=== PATIENT | female | born 1970 | race Caucasian/White ===

== ENCOUNTER 2016-10-10 11:49 | Outpatient (CLI) | payer OTHER ==
[2015-05-08 11:35] VITALS: BP 104/60
[2016-10-10 12:28] LABS: eGFR (African) > 60; eGFR (Non-African) > 60
== END 2016-10-10 11:50 ==
LOC: LAB 11:49
PROVIDERS: ATTEND Family Medicine
DX: E78.2 Mixed hyperlipidemia (principal); E03.9 Hypothyroidism, unspecified
CPT/HCPCS: 36415; 80053; 80061; 84443

== ENCOUNTER 2016-11-08 16:07 | Outpatient (CLI) | payer OTHER ==
[2015-05-08 11:35] VITALS: BP 104/60
== END 2016-11-08 16:10 ==
LOC: LABRHC 16:07
PROVIDERS: ATTEND Physician Assistant
DX: N39.0 Urinary tract infection, site not specified (principal)
CPT/HCPCS: 87086

== ENCOUNTER 2017-11-21 15:41 | Emergency (ER) | payer OTHER ==
[2017-11-21] MEDS ORDERED: KETOROLAC TROMETHAMINE 30 MG/1ML VIAL IVP ONE (15:52)
[2017-11-21] MEDS ORDERED: (BACK ORDERED; DO NOT ORDER) DIAZEPAM 5 MG/ML DISP.SYRIN IVP ONE (15:52)
[2017-11-21] MEDS ORDERED: ORPHENADRINE CITRATE 60 MG/2ML IV ONE (16:14)
--- NOTE | 2017-11-21 17:08 | ED Physician Documentation ---
Low Back Pain - HISTORIAN Historian: patient - HPI Stated Complaint: Back Spasms Chief Complaint: Low Back Pain/ Injury History: back pain Onset: hours Duration: continues in ED Severity: severe (spasms) Further Comments: yes (47 year old female patient presents with complaints of low back pain and spasms which started around 1300. Denies heavy lifting or fall prior to pain. 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 Very tearful, today is anniversary of son's .) - ROS CONST: no problems CVS/RESP: none EYES/ENT: none MS/SKIN/LYMPH: back pain. denies: calf pain, neck pain, joint pain, leg swelling, leg pain, ankle swelling Neuro/Psych: none GI/: denies: abdominal pain - PAST HX Past History: back pain. denies: back injury Other History: hypertension, other (HLD, hypothyroidism) Allergies/Adverse Reactions: Allergies Allergy/AdvReac Type Severity Reaction Status Date / Time codeine [Codeine] Allergy Mild Hives Verified 11/21/17 16:07 Home Medications: Ambulatory Orders Medication Instructions Recorded Baclofen [Liorasal] 10 mg PO TID PRN #30 tablet 11/21/17 Ketorolac Tromethamine [Toradol] 10 mg PO TID #15 tablet 11/21/17 - SOCIAL HX Smoking History: non-smoker - FAMILY HX Family History: denies: none - VITAL SIGNS Vital Signs: Vital Signs Temp Pulse Resp BP Pulse Ox 89 15 122/87 98 11/21/17 17:16 11/21/17 17:16 11/21/17 17:16 11/21/17 15:42 - REVIEWED ASSESSMENTS Nursing Assessment Reviewed: Yes Vitals Reviewed: Yes Progress - Progress Progress: No Valium available. Norflex and toradol given in ER. Patient states she feels much better at discharge. ED Results Lab/Radiology - Orders Orders: ED Orders Category Date Time Status Place IV Lock 1T Care 11/21/17 16:05 Active Diazepam [Valium] Med 11/21/17 15:52 Discontinued 5 mg IVP NOW ONE Ketorolac Tromethamine [Toradol] Med 11/21/17 15:52 Discontinued 30 mg IVP NOW ONE Orphenadrine Citrate [Norflex] Med 11/21/17 16:14 Discontinued 60 mg IV NOW ONE Low Back Pain/Injury - Physical Exam General Appearance: severe distress EENT: eye inspection normal, DMITRIY Resp/CVS: chest non-tender, breath sounds nml, heart sounds nml, no resp. distress, lungs clear, reg. rate & rhythm Abdomen: non-tender, no organomegaly, no pulsatile mass Back: muscle spasm (bilateral lumbar spine) Straight Leg Raising: Positive Left, Positive Right Neuro/Psych: oriented x3, motor nml, sensation nml, bilat. 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 Limit your dose to less than 4 G per day. Alternate with Ibuprofen 600-800mg three times a day with food as needed. Do not take for more than 5 days in a row. Do not take ibuprofen, aleve, naproxen or any other NSAID while you are on toradol. You may want to try massage, over the counter lidocaine patches, biofreeze, megan narayan or aspercream . If you are unable to bear weight and continuing to have significant pain on day 3-4; see your PCP for re-evaluation and additional xrays. Condition: Stable Disposition: 01 HOME, SELF-CARE Decision to Admit: NO Decision Time: 17:08
[2017-11-21 17:18] VITALS: BP 122/87
== END 2017-11-21 17:16 | disposition home or self-care (01) ==
LOC: ED 15:41
DX: M62.830 Muscle spasm of back (principal)
CPT/HCPCS: J1885; J2360; S1016

== ENCOUNTER 2018-03-11 08:34 | Outpatient (CLI) | payer OTHER ==
[2018-03-11 10:08] LABS: eGFR (Non-African) > 60
== END 2018-03-11 08:36 ==
LOC: LAB 08:34
PROVIDERS: ATTEND Nurse Practitioner Family
DX: E78.00 Pure hypercholesterolemia, unspecified (principal); R73.9 Hyperglycemia, unspecified; E03.9 Hypothyroidism, unspecified
CPT/HCPCS: 36415; 80053; 80061; 83036; 84439; 84443; 84481

== ENCOUNTER 2018-04-08 08:45 | Outpatient (CLI) | payer OTHER | END 2018-04-08 08:46 | LOC: LAB 08:45 | PROVIDERS: ATTEND Nurse Practitioner Family | DX: E03.9 Hypothyroidism, unspecified (principal) | CPT/HCPCS: 36415; 84439; 84443; 84481 ==

== ENCOUNTER 2018-05-17 10:32 | Outpatient (CLI) | payer OTHER | END 2018-05-17 10:33 | LOC: LAB 10:32 | PROVIDERS: ATTEND Nurse Practitioner Family | DX: E03.9 Hypothyroidism, unspecified (principal) | CPT/HCPCS: 36415; 84436; 84479 ==

== ENCOUNTER 2018-05-28 20:12 | Emergency (ER) | payer OTHER ==
[2018-05-28 20:34] VITALS: BP 151/86
[2018-05-28] MEDS: 0.9 % SODIUM CHLORIDE 1,000 ML IV ONE ×2 (21:06→21:58)
[2018-05-28] MEDS: ONDANSETRON HCL/PF 4 MG/ 2ML VIAL IVP ONE (21:06)
[2018-05-28 21:07] LABS: MEAN CORPUSCULAR HEMOGLOBIN 28.6 pg (28.0-34.0)
[2018-05-28] MEDS: PROMETHAZINE HCL 25 MG/ML VIAL ONE (21:07)
[2018-05-28] MEDS: PROMETHAZINE HCL 25 MG in 0.9 % SODIUM CHLORIDE 50 ML IV ONE (21:07)
[2018-05-28 21:08] LABS: EOSINOPHILS % 3.2 % (0.0-6.8); MONOCYTES % 7.9 % (0.0-11.0); NEUTROPHILS # 7.1 # k/uL (1.4-7.7)
[2018-05-28 21:16] LABS: eGFR (Non-African) > 60
[2018-05-28] MEDS: KETOROLAC TROMETHAMINE 30 MG/1ML VIAL IVP ONE (21:59)
--- NOTE | 2018-05-28 22:30 | ED Physician Documentation ---
Nausea/Vomiting/Diarrhea - HISTORIAN Historian: patient - HPI Stated Complaint: Diarrhea Chief Complaint: Nausea,Vomiting,Diarrhea Further Comments: yes (47 year old female patient presents with diarrhea and cramping since 0400 yesterday. Vomiting x 1. Denies any fever. Has not taken her daily medications x 2 days.) - Associated Symptoms Vomiting: mild Diarrhea: other (frequent) Abdominal Pain: cramping - ROS CONST: denies: fever, sweating, chills CVS/RESP: denies: chest pain, shortness of breath, cough, dry cough, non- productive cough, productive cough, bloody cough, other GI/: none EYES/ENT: none MS/SKIN/LYMPH: denies: joint pain, leg swelling, rash, swollen glands, ankle swelling, other NEURO/PSYCH: headache. denies: fainting, anxiety, depression - PAST HX Past History: diabetes Type 2 Other History: hypertension Allergies/Adverse Reactions: Allergies Allergy/AdvReac Type Severity Reaction Status Date / Time codeine [Codeine] Allergy Mild Hives Verified 05/28/18 20:35 Home Medications: Ambulatory Orders Medication Instructions Recorded Ondansetron HCl Rapdis [Zofran Odt] 4 mg PO Q6 PRN #30 tab 05/28/18 - SOCIAL HX Smoking History: non-smoker - FAMILY HX Family History: denies: none - VITAL SIGNS Vital Signs: Vital Signs Temp Pulse Resp BP Pulse Ox 95.7 F L 117 H 15 151/86 97 05/28/18 22:41 05/28/18 22:41 05/28/18 22:41 05/28/18 22:41 05/28/18 22:41 - REVIEWED ASSESSMENTS Nursing Assessment Reviewed: Yes Vitals Reviewed: Yes Progress - Progress Progress: Patient with 2 episodes of diarrhea while in ER. Feels better after promethazine. Second liter of fluids given . ED Results Lab/Radiology - Lab Results Lab Results: Lab Results 05/29/18 05/28/18 05/28/18 20:50 20:54 20:54 WBC 10.20 K/ul K/ul (4.00-12.00) RBC 5.20 M/ul M/ul (3.90-5.20) Hgb 14.9 g/dL g/dL (12.0-16.0) Hct 45.6 % % (34.5-46.5) MCV 88.0 fl fl (80.0-100.0) MCH 28.6 pg pg (28.0-34.0) MCHC 32.7 g/dL g/dL (30.0-36.0) RDW 14.0 % % (11.3-14.3) Plt Count 345 K/mm3 K/mm3 (130-400) Neut % (Auto) 69.6 % % (39.0-79.0) Lymph % (Auto) 18.3 % % (16.0-50.0) Emmet % (Auto) 7.9 % % (0.0-11.0) Eos % (Auto) 3.2 % % (0.0-6.8) Baso % (Auto) 1.0 (0.0-1.5) Neut # (Auto) 7.1 # k/uL # k/uL (1.4-7.7) Lymph # (Auto) 1.9 # k/uL # k/uL (0.6-4.0) Emmet # (Auto) 0.8 # k/uL # k/uL (0.0-0.9) Eos # (Auto) 0.3 # k/uL # k/uL (0.0-0.6) Baso # (Auto) 0.1 # k/uL # k/uL (0.0-0.5) Sodium 138 mmol/L mmol/L (136-145) Potassium 4.3 mmol/L mmol/L (3.5-5.1) Chloride 104 mmol/L mmol/L (98-107) Carbon Dioxide 22 mmol/L mmol/L (22-30) BUN 8 mg/dL mg/dL (7-17) Creatinine 0.59 mg/dL mg/dL (0.52-1.04) Estimated Creat Clear 253 Est GFR ( Amer) > 60 (60 - ) Est GFR (Non-Af Amer) > 60 (60 - ) Glucose 96 mg/dL mg/dL (74-106) Calcium 9.3 mg/dL mg/dL (8.4-10.2) Total Bilirubin 0.3 mg/dL mg/dL (0.2-1.3) AST 40 U/L U/L (15-46) ALT 30 U/L U/L (13-69) Alkaline Phosphatase 91 U/L U/L (38-126) Total Protein 8.6 g/dL H g/dL (6.3-8.2) Albumin 4.3 g/dL g/dL (3.5-5.0) Influenza A (Rapid) Negative (NEGATIVE) Influenza B (Rapid) Negative (NEGATIVE) - Orders Orders: ED Orders Category Date Time Status Place IV Lock 1T Care 05/28/18 20:30 Active CBC/PLATELET/DIFF Stat Lab 05/28/18 20:54 Completed CMP Stat Lab 05/28/18 20:54 Completed INFLUENZA A&B Stat Lab 05/29/18 20:50 Completed 0.9 % Sodium Chloride [Normal Saline] 1,000 ml Med 05/28/18 20:30 Discontinued IV NOW 0.9 % Sodium Chloride [Normal Saline] 1,000 ml Med 05/28/18 21:42 Discontinued IV NOW Ketorolac Tromethamine [Toradol] Med 05/28/18 21:42 Discontinued 30 mg IVP NOW ONE Ondansetron HCl/Pf [Zofran] Med 05/28/18 20:30 Discontinued 4 mg IVP NOW ONE Promethazine HCl [Phenergan] Med 05/28/18 20:51 Discontinued 25 mg .ROUTE .STK-MED ONE Promethazine HCl [Phenergan] 25 mg Med 05/28/18 20:54 Discontinued 0.9 % Sodium Chloride [Normal Saline] 50 ml IV NOW Nausea Physical Exam - EXAM General Appearance: mild distress EENT: eye inspection normal, DMITRIY Respiratory: no resp distress, chest non-tender, breath sounds normal CVS: reg rate & rhythm, heart sounds normal, equal pulses, no murmur, no gallop, PMI nml, no JVD, no friction rub, 24 Abdomen: non-tender, no organomegaly, tenderness (Epigastric) Skin: normal color, warm/dry, NR, INT, PAL, DR Extremities: non-tender, normal range of motion, no evidence of injury, no 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, J, 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 Neuro/Psych: oriented X3, CN's nml as tested, motor nml, sensation nml, mood/affect nml Discharge Clincal Impression: Nausea and vomiting Qualifiers: Vomiting type: unspecified Vomiting Intractability: non-intractable Qualified Code(s): R11.2 - Nausea with vomiting, unspecified Diarrhea Qualifiers: Diarrhea type: unspecified type Qualified Code(s): R19.7 - Diarrhea, unspecified Prescriptions: Ondansetron HCl Rapdis [Zofran Odt] 4 mg PO Q6 PRN #30 tab PRN Reason: Nausea / Vomiting Referrals: Zee Garcia, 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 [Primary Care Provider] - 2 Days Additional Instructions: Diet: Clear liquids Sprite/7-up Juices apple, white grape Gatorade/Powerade Jello Popsicles When tolerating clear liquids, advance to bland/brat diet - such as crackers, rice, Bananas, apples/applesauce or toast Return to the emergency department or call your doctor, if you are having severe abdominal pain, fever >101.0, or if there is blood in the vomit or diarrhea, or you cannot keep down liquids or solid food. Condition: Stable Disposition: 01 HOME, SELF-CARE Decision to Admit: NO Decision Time: 22:28
== END 2018-05-28 22:41 | disposition home or self-care (01) ==
LOC: ED 20:12
DX: R11.2 Nausea with vomiting, unspecified (principal); R19.7 Diarrhea, unspecified
CPT/HCPCS: 36415; 80053; 85025; 87400; 96365; 96375; 99283; 99284; J1885; J2405; J2550; J7030; S1016

== ENCOUNTER 2018-07-24 20:42 | Outpatient (CLI) | payer OTHER ==
--- NOTE | 2018-07-24 21:30 | Diagnostic Imaging Report ---
SUKHJINDER BUITRAGO [facility] [address] [facility] [address] [address] Report Submission Date: July 24, 2018 9:10:24 PM CDT Patient Study Name: KORI HINES Date: July 24, 2018 8:45:16 PM CDT Modality Type: DX Gender: F Description: FINGER 2 VIEWS OR MORE : 72 Institution: [facility] Physician: SUKHJINDER BUITRAGO Left 1st finger, three views. History: Pain at the base of thumb after trauma x1 week ago Findings: The osseous structures are intact without acute fracture. The joint space and alignment are normal. There is no soft tissue swelling. Impression: 1. No acute osseous abnormality. Electronically signed on July 24, 2018 9:10:24 PM CDT by: Hans CHAUDHRY
== END 2018-07-24 20:44 ==
LOC: RAD 20:42
PROVIDERS: ATTEND Nurse Practitioner Family
DX: M79.642 Pain in left hand (principal)
CPT/HCPCS: 73140